=== PATIENT | male | born 1995 | race Two or more races ===

== ENCOUNTER 2020-07-07 14:57 | Emergency (ER) | payer SELFPAY | END 2020-07-07 16:22 | disposition home or self-care (01) | LOC: FER 14:57 | DX: S20.211A Contusion of right front wall of thorax, initial encounter (principal); W01.198A Fall on same level from slipping, tripping and stumbling with subsequent striking against other object, initial encounter; Y92.89 Other specified places as the place of occurrence of the external cause; Y99.0 Civilian activity done for income or pay | CPT/HCPCS: 71101 ==